=== PATIENT | female | born 1985 | race Two or more races ===

== ENCOUNTER 2021-08-26 03:03 | Emergency (ER) | payer MEDICAID ==
[2021-08-26] MEDS ORDERED: Sodium Chloride 0.9% 1,000 ML IV ONE (03:20)
[2021-08-26] MEDS ORDERED: Sodium Chloride 0.9% 10 ML Syringe FLUSH PRN (03:20)
--- NOTE | 2021-08-26 19:19 | ER ---
DATE SEEN: 08/26/2021 REASON FOR VISIT: Not feeling well. HISTORY OF PRESENT ILLNESS: This is a 35-year-old [place] patient who presents from the [facility]. Apparently, she was kicked out because of lack of payment. She complains of not feeling well. Symptoms of aches including palpitations, fatigue, and stress. She has had no fever, chills, and she is requesting to have an IV. PAST MEDICAL HISTORY: I reviewed her past medical history from the [facility] that showed that she has a history of drug abuse, alcohol abuse, ADHD, major depression, history of PTSD, and paranoid personality disorder. She has been hospitalized several times. REVIEW OF SYSTEMS: She did not have any homicidal or suicidal ideation, and all other systems were noncontributory. PHYSICAL EXAMINATION: GENERAL: She is not in distress. Her vital signs are normal. She has oxygenation of 97%. HEENT: Normal. CARDIOVASCULAR: Negative. RESPIRATORY: Clear. MENTAL STATUS: She is agitated but does answer questions well. No signs of manual psychosis. IMPRESSION: 1. Feeling poorly. 2. Major depression. 3. Palpitations. PLAN: I did oblige and give her 1 L of normal saline but will arrange for her to get a ride and go back home. /[id number] DEO/NBA
== END 2021-08-26 10:35 | disposition home or self-care (01) ==
LOC: FB.ED 03:03
DX: F32.A Depression, unspecified (principal); R00.2 Palpitations
CPT/HCPCS: 99284; J7030